=== PATIENT | male | born 1965 | race Caucasian/White ===

== ENCOUNTER 2017-02-09 10:09 | Emergency (ER) | payer BC, OTHER ==
[~2017-02-09] VITALS: Ht 180.3 cm; Wt 92.7 kg
[2017-02-09] MEDS ORDERED: ASPIRIN 81 MG CHEW TABLET PO ONE (10:15)
[2017-02-09] MEDS ORDERED: LISI-542 (10:17)
[2017-02-09 11:26] LABS: BASO % 0.6 % (0.0-1.0); EOS # 0.1 K/mm3 (0.0-0.50); EOS % 2.2 % (0.0-3.0); LARGE UNSTAINED CELL # 0.1 K/mm3 (0.0-0.4); LARGE UNSTAINED CELL % 1.7 % (0.0-4.0); LYMPH # 2.6 K/mm3 (1.5-4.5); LYMPH % 39.6 % (24.0-44.0); MEAN CORPUSCULAR HEMOGLOBIN 34.1 pg (27.0-33.0); MEAN CORPUSCULAR HGB CONC 33.5 g/dl (32.0-36.5); MEAN CORPUSCULAR VOLUME 101.7 fl (80.0-96.0); MONO # 0.4 K/mm3 (0.0-0.8); MONO % 5.7 % (0.0-5.0); NEUTROPHILS # 3.2 K/mm3 (1.8-7.7); NEUTROPHILS % 50.2 % (36.0-66.0); PLATELET COUNT, AUTOMATED 266 k/mm3 (150-450); RED CELL DISTRIBUTION WIDTH 12.5 % (11.5-14.5); WHITE BLOOD COUNT 6.4 K/mm3 (4.0-10.0)
[2017-02-09 11:34] LABS: ANION GAP 2 MEQ/L (8-16); BLOOD UREA NITROGEN 17 MG/DL (7-18); CALCIUM LEVEL 9.3 MG/DL (8.5-10.1); CARBON DIOXIDE LEVEL 30 MEQ/L (21-32); CHLORIDE LEVEL 106 MEQ/L (98-107); CREATININE FOR GFR 0.93 MG/DL (0.70-1.30); GLOMERULAR FILTRATION RATE > 60.0 (>56); GLUCOSE, FASTING 89 MG/DL (70-105); SODIUM LEVEL 138 MEQ/L (136-145)
[2017-02-09 11:49] LABS: POTASSIUM SERUM 5.3 MEQ/L (3.5-5.1)
--- NOTE | 2017-02-09 12:07 | REP ---
PORTABLE CHEST X-RAY: Single view. HISTORY: Chest pain. COMPARISON STUDY: October 18, 2005. FINDINGS: EKG monitoring electrodes overlie the chest. Lungs are well inflated and clear. Heart size is normal. Pulmonary vasculature is not increased. IMPRESSION: No active disease. Signed by John Daily MD 02/09/2017 03:21 P
--- NOTE | 2017-02-09 13:18 | ECGEPIP ---
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
[2017-02-09] MEDS ORDERED: NITROGLYCERIN 0.3 MG SUBL TAB SL STA (13:57)
[2017-02-09 14:02] VITALS: BP 167/108
[2017-02-09] MEDS ORDERED: AMLO5TAB2 PO (14:03)
[2017-02-09] MEDS ORDERED: NITR0.3S4 SL (14:04)
[2017-02-09] MEDS ORDERED: ASPI81TA85 PO (14:04)
[2017-02-09 14:12] VITALS: BP 161/99
== END 2017-02-09 16:01 | disposition home or self-care (01) ==
LOC: M ED 10:09
DX: R07.9 Chest pain, unspecified (principal); I10 Essential (primary) hypertension; M25.561 Pain in right knee; Z79.899 Other long term (current) drug therapy; F17.210 Nicotine dependence, cigarettes, uncomplicated

== ENCOUNTER → 2017-03-10 | Outpatient (REF) | payer BC, OTHER ==
[~2017-03-10] MED LIST: AMLO5TAB2 PO; ASPI81TA85 PO; LISI-542; LISI10TA4 PO; METO-346 PO; NITR0.3S4 SL; TRAM50TA2 PO
[2017-03-10 12:55] LABS: ANION GAP 8 MEQ/L (8-16); BLOOD UREA NITROGEN 15 MG/DL (7-18); CALCIUM LEVEL 9.4 MG/DL (8.5-10.1); CARBON DIOXIDE LEVEL 25 MEQ/L (21-32); CHLORIDE LEVEL 109 MEQ/L (98-107); CHOLESTEROL LEVEL 207 MG/DL (<200); CREATININE FOR GFR 0.79 MG/DL (0.70-1.30); GLOMERULAR FILTRATION RATE > 60.0 (>56); GLUCOSE, FASTING 86 MG/DL (70-105); POTASSIUM SERUM 4.9 MEQ/L (3.5-5.1); SODIUM LEVEL 142 MEQ/L (136-145); TRIGLYCERIDES LEVEL 148 MG/DL (<150)
== END ==
LOC: M SFHCLERA 08:51
PROVIDERS: ATTEND Family Medicine
DX: I10 Essential (primary) hypertension (principal)

== ENCOUNTER 2017-03-24 10:01 | Emergency (ER) | payer BC, OTHER ==
[~2017-03-24] VITALS: Ht 180.3 cm; Wt 93.2 kg
[~2017-03-24 10:01] MED LIST changes: -LISI10TA4 PO; -METO-346 PO; -TRAM50TA2 PO
[2017-03-24] MEDS ORDERED: LISI10TA4 PO (10:15)
[2017-03-24] MEDS ORDERED: TRAM50TA2 PO (10:15)
[2017-03-24] MEDS ORDERED: METO-346 PO (10:15)
[2017-03-24 10:36] LABS: BASO # 0.1 10^3/uL (0.0-0.2); BASO % 0.8 % (0.0-1.0); EOS # 0.2 10^3/uL (0.0-0.50); EOS % 2.4 % (0.0-3.0); IMMATURE GRANULOCYTE % 0.3 % (0-0); LYMPH # 2.6 10^3/uL (1.5-4.5); LYMPH % 42.2 % (24.0-44.0); MEAN CORPUSCULAR HEMOGLOBIN 33.3 pg (27.0-33.0); MEAN CORPUSCULAR HGB CONC 34.2 g/dl (32.0-36.5); MEAN CORPUSCULAR VOLUME 97.4 fl (80.0-96.0); MONO # 0.5 10^3/uL (0.0-0.8); MONO % 7.5 % (0.0-5.0); NEUTROPHILS # 2.9 10^3/uL (1.8-7.7); NEUTROPHILS % 46.8 % (36.0-66.0); PLATELET COUNT, AUTOMATED 258 10^3/uL (150-450); RED CELL DISTRIBUTION WIDTH 12.2 % (11.5-14.5); WHITE BLOOD COUNT 6.1 10^3/uL (4.0-10.0)
[2017-03-24] MEDS ORDERED: ASPIRIN 81 MG CHEW TABLET PO ONE (10:45)
[2017-03-24 10:47] LABS: INR 0.87
--- NOTE | 2017-03-24 10:54 | REP ---
Portable chest: Single view. History: Chest pain Comparison study: February 09, 2017. Findings: The lungs are well inflated and clear. EKG electrodes are seen. Cardiomediastinal silhouette is unremarkable. No bony abnormality is seen. Impression: No active disease. Signed by John Daily MD 03/24/2017 11:25 A
[2017-03-24 11:05] LABS: ALBUMIN 3.5 GM/DL (3.2-5.2); ALBUMIN/GLOBULIN RATIO 1.03 (1.00-1.93); ALKALINE PHOSPHATASE 56 U/L (45-117); ALT/SGPT 39 U/L (12-78); ANION GAP 7 MEQ/L (8-16); AST/SGOT 18 U/L (15-37); BILIRUBIN,DIRECT < 0.1 MG/DL (0.0-0.2); BILIRUBIN,TOTAL 0.4 MG/DL (0.2-1.0); BLOOD UREA NITROGEN 13 MG/DL (7-18); CALCIUM LEVEL 8.5 MG/DL (8.5-10.1); CARBON DIOXIDE LEVEL 26 MEQ/L (21-32); CHLORIDE LEVEL 107 MEQ/L (98-107); CREATININE FOR GFR 0.78 MG/DL (0.70-1.30); GLOMERULAR FILTRATION RATE > 60.0 (>56); GLUCOSE, FASTING 97 MG/DL (70-105); POTASSIUM SERUM 4.7 MEQ/L (3.5-5.1); SODIUM LEVEL 140 MEQ/L (136-145); TOTAL PROTEIN 6.9 GM/DL (6.4-8.2)
[2017-03-24] MEDS ORDERED: NITROGLYCERIN 0.4 MG SUBL TABLET As Ordered ONE (12:14)
[2017-03-24] MEDS ORDERED: NITROGLYCERIN 2% OINT 1 GM *U/D* PKT As Ordered ONE (12:14)
[2017-03-24] MEDS ORDERED: NITROGLYCERIN 0.4 MG SUBL TABLET SL STA (12:19)
[2017-03-24 12:24] VITALS: BP 125/73
[2017-03-24] MEDS ORDERED: NITROGLYCERIN 2% OINT 1 GM *U/D* PKT TOP ONE (12:30)
[2017-03-24] MEDS ORDERED: ISOVUE-370 76% 100ML VIAL (Q9967) As Ordered ONE (14:42)
--- NOTE | 2017-03-24 15:30 | REP ---
CT of the chest CT pulmonary artery angiography: There are are no emboli in the pulmonary trunk or central pulmonary arteries. There are no emboli in the pulmonary artery lobe or segment branches. There are no infiltrates or effusions. No masses or nodules. There is no mediastinal or hilar adenopathy. No axillary adenopathy. The thoracic aorta is unremarkable. Cardiac size is normal. No pericardial effusion. The visualized upper abdominal contents are unremarkable. Impression: There are no pulmonary emboli. Otherwise, negative CT study of the chest. Signed by Neal Goode MD 03/24/2017 03:21 P
[2017-03-24] MEDS ORDERED: ACETAMINOPHEN 325 MG TAB PO ONE (16:45)
[2017-03-24] MEDS ORDERED: ONDANSETRON 4MG/2ML VIAL (J2405) IV ONE (17:30)
[2017-03-24] MEDS ORDERED: METOCLOPRAMIDE INJ 10MG/2ML VIAL (J2765) IV ONE (17:30)
[2017-03-24 17:49] VITALS: BP 142/93
--- NOTE | 2017-03-25 08:20 | ECGEPIP ---
Stationary ECG Study [facility] - ED Test Date: 2017-03-24 Pat Name: XIMENA FELIX Department: Room: - Gender: M [employer] Producer: cesar : 1965 Requested By: Rose Agrawal Order Number: [id number] Reading MD: Rose Agrawal Measurements Intervals [place] Rate: 73 P: 17 SC: 154 QRS: 36 QRSD: 100 T: 40 QT: 386 QTc: 427 Interpretive Statements SINUS RHYTHM SIMILAR 02/09/17 Electronically Signed On 03-25-2017 8:20:24 EDT by Rose Agrawal
--- NOTE | 2017-03-26 05:27 | ECGEPIP ---
Stationary ECG Study [facility] - ED Test Date: 2017-03-24 Pat Name: XIMENA FELIX Department: Room: - Gender: M Process Coordinator: hawa : 1965 Requested By: Rose Agrawal Order Number: [id number] Reading MD: Osiel Douglas Measurements Intervals [place] Rate: 66 P: 18 [place]: 151 QRS: 30 QRSD: 99 T: 40 QT: 405 QTc: 426 Interpretive Statements SINUS RHYTHM SIMILAR TO PRIOR ON SAME DATE Electronically Signed On 03-26-2017 5:27:21 EDT by Osiel Douglas
== END 2017-03-24 17:50 | disposition home or self-care (01) ==
LOC: M ED 10:01
DX: R07.9 Chest pain, unspecified (principal); I10 Essential (primary) hypertension; F17.210 Nicotine dependence, cigarettes, uncomplicated; Z79.899 Other long term (current) drug therapy; Z79.82 Long term (current) use of aspirin; Z91.030 Bee allergy status
CPT/HCPCS: 36415; 71010; 71275; 80048; 80076; 82550; 82553; 83690; 83880; 84443; 85025; 85610; 93005; 93041; 94760; 99285; Q9967